=== PATIENT | male | born 1990 | race American Indian/Alaskan Native ===

== ENCOUNTER 2016-12-15 20:59 | Emergency (ER) | payer SELFPAY ==
[2016-12-15 21:00] VITALS: BMI 22.1
[2016-12-15 21:30] VITALS: BP 130/77; PULSE 74; RESP 16; TEMP 97.9; O2SAT 100
[2016-12-15] MEDS ORDERED: cefTRIAXone (Rocephin) 250 mg Inj IM STA (22:53)
--- NOTE | 2016-12-15 23:00 | ED PDOC ---
Arrival/HPI - General Chief Complaint: Male Genitourinary Time Seen by Provider: 12/15/16 22:47 Historian: Patient - History of Present Illness Narrative History of Present Illness (Text): 12/15/16 22:57 26 y/o male, no pmh, stated that he doesn't think he is allergic to penicillin, c/o itching rash on the groin x 1 week. Pt. stated that he had unprotected sex about 2 weeks ago, concerning for the gonorrhea and chlamydia, stated that he wants the prophylatic treatment. Itching groin region, admits sweating alot, no testicular pain, no urinary symptoms, no numbness or tingling, no other medical or psychological complaints. Past Medical History - Provider Review Nursing Documentation Reviewed: Yes - Infectious Disease Hx of Infectious Diseases: None - Cardiac Hx Cardiac Disorders: No Hx Hypertension: No - Pulmonary Hx Respiratory Disorders: No Hx Tuberculosis: No - Neurological Hx Neurological Disorder: No HX Cerebrovascular Accident: No Hx Seizures: No - HEENT Hx HEENT Disorder: No - Renal Hx Renal Disorder: No - Endocrine/Metabolic Hx Endocrine Disorders: No - Hematological/Oncological Hx Blood Disorders: No Hx Cancer: No - Integumentary Hx Dermatological Disorder: No - Musculoskeletal/Rheumatological Hx Musculoskeletal Disorders: No - Gastrointestinal Hx Gastrointestinal Disorders: No - Genitourinary/Gynecological Hx Genitourinary Disorders: No Hx Sexually Transmitted Diseases: No - Psychiatric Hx Psychophysiologic Disorder: Yes Hx Anxiety: Yes Hx Substance Use: No - Anesthesia Hx Anesthesia: No Family/Social History - Physician Review Nursing Documentation Reviewed: Yes Family/Social History: Unknown Family HX Smoking Status: Never Smoked Hx Alcohol Use: No Hx Substance Use: No Allergies/Home Meds Allergies/Adverse Reactions: Allergies Penicillins Allergy (Verified 12/15/16 21:24) RASH Review of Systems - Review of Systems Constitutional: absent: Fatigue, Fevers Eyes: absent: Vision Changes ENT: absent: Hearing Changes Respiratory: absent: Cough Cardiovascular: absent: Chest Pain Gastrointestinal: absent: Abdominal Pain, Nausea, Vomiting Skin: Rash, Pruritis. absent: Skin Lesions, Laceration, Abscess, Ulcer, Cellulitis Neurological: absent: Headache, Dizziness, Focal Weakness, Gait Changes, Speech Changes, Facial Droop, Disequilibrium, Seizure Physical Exam Vital Signs Reviewed: Yes Vital Signs Temp Pulse Resp BP Pulse Ox 12/15/16 21:25 97.9 F 74 16 130/77 100 Temperature: Afebrile Blood Pressure: Normal Pulse: Regular Respiratory Rate: Normal Appearance: Positive for: Well-Appearing, Non-Toxic, Comfortable Pain Distress: None Mental Status: Positive for: Alert and Oriented X 3 - Systems Exam Head: Present: Atraumatic, Normocephalic Pupils: Present: PERRL Extroacular Muscles: Present: EOMI Conjunctiva: Present: Normal Mouth: Present: Moist Mucous Membranes Neck: Present: Normal Range of Motion Respiratory/Chest: Present: Clear to Auscultation, Good Air Exchange. No: Respiratory Distress, Accessory Muscle Use Cardiovascular: Present: Regular Rate and Rhythm, Normal S1, S2. No: Murmurs Abdomen: Present: Normal Bowel Sounds. No: Tenderness, Distention, Peritoneal Signs Genitourinary Male: Present: Normal External Genitalia, Circumcised Penis, Other (visible lichenification on the bilateral inner thigh skin folds region with no vescicular lesion or skin tags, no regional lymphenapathy. ). No: Lesions, Penile Discharge, Testicle Tenderness, Penile Swelling, Masses, Erythema, Hernias, Testicle Swelling Back: Present: Normal Inspection Upper Extremity: Present: Normal Inspection. No: Cyanosis, Edema Lower Extremity: Present: Normal Inspection. No: Edema Neurological: Present: GCS=15, CN II-XII Intact, Speech Normal Skin: Present: Warm, Dry, Normal Color. No: Rashes Psychiatric: Present: Alert, Oriented x 3, Normal Insight, Normal Concentration Medical Decision Making ED Course and Treatment: 12/15/16 23:01 -Pt. stated that he is high risk for the gonorrhea/chlamydia, refused HIV and agreed on the prophylatic treatment. Pt. stated that he will willing to take the rocephin 250mg IM risk for allergic reaction which clinically is less than 10 percent chance, will give benadryl and the prednisone at the same time as well. I will also give epipen to the patient for precaution at home. -rocephine 250mg and azithromycin 1gm po ordered. -Discharge home with epipen, lotrisone cream, keep the skin cool and dry, use condomn in the the future, notify all your sexual partners for STD testing and prophylatically treatment if indicated, follow up with your own pmd within 2 days, return to the ER for any new or worsening signs or symptoms. 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 Disposition/Present on Arrival - Present on Arrival Any Indicators Present on Arrival: No History of DVT/PE: No History of Uncontrolled Diabetes: No Urinary Catheter: No History of Decub. Ulcer: No History Surgical Site Infection Following: None - Disposition Have Diagnosis and Disposition been Completed?: Yes Diagnosis: Potential exposure to STD, Tinea cruris Disposition: HOME/ ROUTINE Disposition Time: 23:05 Patient Plan: Discharge Condition: GOOD Additional Instructions: Discharge home with epipen, lotrisone cream, keep the skin cool and dry, use condomn in the the future, notify all your sexual partners for STD testing and prophylatically treatment if indicated, follow up with your own pmd within 2 days, return to the ER for any new or worsening signs or symptoms. Prescriptions: Epinephrine HCl [Epipen Auto-Injector] 0.3 mg MR ONCE #1 unit Clotrimazole/Betamethasone [Lotrisone] 1 appl EXT BID #60 g Referrals: Pablito Smith MD [Staff Provider] - Follow up with primary Forms: WORK NOTE
== END 2016-12-15 23:24 | disposition home or self-care (01) ==
LOC: ED 20:59
DX: B35.6 Tinea cruris (principal); Z20.2 Contact with and (suspected) exposure to infections with a predominantly sexual mode of transmission; Z88.0 Allergy status to penicillin
CPT/HCPCS: 87491; 87591; 96372; 99283; J0696

== ENCOUNTER 2016-12-16 01:08 | Emergency (ER) | payer SELFPAY ==
[2016-12-16 01:09] VITALS: BMI 22.1
[2016-12-16 01:45] VITALS: RESP 18
--- NOTE | 2016-12-16 03:11 | ED PDOC ---
Arrival/HPI <Omar Bocanegra - Last Filed: 12/16/16 04:21> - General Historian: Patient - History of Present Illness Time/Duration: Prior to Arrival <Rick Mccormick - Last Filed: 12/16/16 06:56> - General Chief Complaint: Dizziness/Lightheaded Time Seen by Provider: 12/16/16 02:27 - History of Present Illness Narrative History of Present Illness (Text): 12/16/16 03:07 26 y/o male with no reported history presenting with complaints of dizziness. Patient was seen here today requesting evaluation for possible STD infection. He was given Rocephin IM as well as Prednisone and benadryl due to Penicillin allergy and risk of possible cross reaction. The patient states he left here and shortly afterward started experiencing dizziness. Patient is also expressing feelings of anxiety which he states may be exacerbating his dizziness. Patient denies chest pain, shortness of breath, headache, seizure or syncope. (Rick Mccormick) Past Medical History - Provider Review Nursing Documentation Reviewed: Yes - Infectious Disease Hx of Infectious Diseases: None - Cardiac Hx Cardiac Disorders: No Hx Hypertension: No - Pulmonary Hx Respiratory Disorders: No Hx Tuberculosis: No - Neurological Hx Neurological Disorder: No HX Cerebrovascular Accident: No Hx Seizures: No - HEENT Hx HEENT Disorder: No - Renal Hx Renal Disorder: No - Endocrine/Metabolic Hx Endocrine Disorders: No - Hematological/Oncological Hx Blood Disorders: No Hx Cancer: No - Integumentary Hx Dermatological Disorder: No - Musculoskeletal/Rheumatological Hx Musculoskeletal Disorders: No - Gastrointestinal Hx Gastrointestinal Disorders: No - Genitourinary/Gynecological Hx Genitourinary Disorders: No Hx Sexually Transmitted Diseases: No - Psychiatric Hx Psychophysiologic Disorder: Yes Hx Anxiety: Yes Hx Substance Use: No - Anesthesia Hx Anesthesia: No <Rick Mccormick - Last Filed: 12/16/16 06:56> Family/Social History Family/Social History: Unknown Family HX Smoking Status: Never Smoked Hx Alcohol Use: No Hx Substance Use: No <Rick Mccormick - Last Filed: 12/16/16 06:56> Allergies/Home Meds <Omar Bocanegra - Last Filed: 12/16/16 04:21> <Rick Mccormick - Last Filed: 12/16/16 06:56> Allergies/Adverse Reactions: Allergies Penicillins Allergy (Verified 04/05/17 01:44) RASH Review of Systems - Physician Review All systems were reviewed & negative as marked: Yes - Review of Systems Constitutional: absent: Fatigue, Fevers Eyes: absent: Vision Changes, Photophobia Neurological: Dizziness. absent: Headache, Focal Weakness, Facial Droop <Rick Mccormick - Last Filed: 12/16/16 06:56> Physical Exam Vital Signs Reviewed: Yes Temperature: Afebrile Blood Pressure: Normal Pulse: Regular Respiratory Rate: Normal Appearance: Positive for: Well-Appearing Pain Distress: None Mental Status: Positive for: Alert and Oriented X 3 - Systems Exam Head: Present: Atraumatic, Normocephalic Pupils: Present: PERRL Extroacular Muscles: Present: EOMI Conjunctiva: Present: Normal Mouth: Present: Moist Mucous Membranes Neck: Present: Normal Range of Motion Respiratory/Chest: Present: Clear to Auscultation. No: Respiratory Distress Cardiovascular: Present: Regular Rate and Rhythm, Normal S1, S2 Abdomen: Present: Normal Bowel Sounds. No: Tenderness Upper Extremity: Present: Normal Inspection. No: Cyanosis, Edema Lower Extremity: Present: Normal Inspection, NORMAL PULSES. No: Edema Neurological: Present: GCS=15, CN II-XII Intact, Speech Normal Skin: Present: Warm. No: Dry Psychiatric: Present: Alert, Oriented x 3, Normal Insight, Normal Concentration <Rick Mccormick - Last Filed: 12/16/16 06:56> Vital Signs Temp Pulse Resp BP Pulse Ox 12/16/16 05:21 98.1 F 71 18 100/56 L 98 12/16/16 01:44 98.0 F 89 18 142/60 97 Medical Decision Making <Omar Bocanegra - Last Filed: 12/16/16 04:21> <Rick Mccormick - Last Filed: 12/16/16 06:56> ED Course and Treatment: Impression: Pt was seen and evaluated with medical office specialist. Pt presented complaining of dizziness. Pt was seen in the Emergency department earlier today for possible STI. Pt was given Rocephin IM, Prednisone, and Benadryl. but began feeling dizzy ahortly after discharge. Aware and agree with HPI, clinical findings, plan , and management. Plan: -- Reassess and disposition Progress Notes: (Omar Bocanegra) 12/16/16 03:12 26 y/o male with no significant PMH presenting with complaints of dizziness. There are no other associated symptoms or focal deficits. Patient was seen here hours ago and given multiple medications. This may be a drug reaction vs labrythitis vs BPPV. 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 / has examined the patient and agrees with the treatment plan. <Omar Bocanegra - Last Filed: 12/16/16 04:21> Disposition/Present on Arrival <Omar Bocanegra - Last Filed: 12/16/16 04:21> - Present on Arrival Any Indicators Present on Arrival: No History of DVT/PE: No History of Uncontrolled Diabetes: No Urinary Catheter: No History of Decub. Ulcer: No History Surgical Site Infection Following: None - Disposition Have Diagnosis and Disposition been Completed?: Yes Disposition Time: 05:00 Patient Plan: Discharge <Rick Mccormick - Last Filed: 12/16/16 06:56> - Disposition Diagnosis: Acute labyrinthitis Disposition: HOME/ ROUTINE Condition: STABLE Discharge Instructions (ExitCare): Lightheadedness (ED), Dizziness (ED) Additional Instructions: Continue to take antibiotics prescribed at last visit. You are prescribed a medication for dizziness. Take this medication as needed for your symptoms. Return to the ED if your symptoms worsen or change. Prescriptions: Meclizine [Antivert] 25 mg PO Q6 PRN #14 tab PRN Reason: Dizziness Forms: WORK NOTE
[2016-12-16 05:22] VITALS: BP 100/56; PULSE 71; TEMP 98.1; O2SAT 98
== END 2016-12-16 05:22 | disposition home or self-care (01) ==
LOC: ED 01:08
DX: H83.09 Labyrinthitis, unspecified ear (principal)

== ENCOUNTER 2017-03-01 18:58 | Emergency (ER) | payer SELFPAY ==
[2017-03-01 18:59] VITALS: BMI 22.1
[2017-03-01 19:19] VITALS: BP 118/74; PULSE 86; RESP 18; TEMP 98.2; O2SAT 99
== END 2017-03-01 21:37 | disposition left against medical advice (07) ==
LOC: ED 18:58
DX: Z02.89 Encounter for other administrative examinations (principal); R51 Headache

== ENCOUNTER 2017-03-17 20:41 | Emergency (ER) | payer SELFPAY ==
[2017-03-17 20:41] VITALS: BMI 22.1
[2017-03-17 21:02] VITALS: RESP 18; TEMP 98.7; O2SAT 100
--- NOTE | 2017-03-17 21:22 | ED PDOC ---
Arrival/HPI - General Chief Complaint: Headache Time Seen by Provider: 03/17/17 21:08 Historian: Patient - History of Present Illness Narrative History of Present Illness (Text): 03/17/17 21:21 This 27 yo male wikorin SMITH, presents to this ED c/o exacerbation of SMITH x 2 weeks. Patient denies recent trauma, recent travel, sick contact, weakness, paresthesias, diplopia, n/v, dizziness, sob, cp, abdominal pain, or abnormal gait. Patient appears in no acute distress. Patient is listening to music, with loud volume. Time/Duration: Other (2 week) Quality: Aching Context: Home Past Medical History - Provider Review Nursing Documentation Reviewed: Yes - Infectious Disease Hx of Infectious Diseases: None - Cardiac Hx Cardiac Disorders: No Hx Hypertension: No - Pulmonary Hx Respiratory Disorders: No Hx Tuberculosis: No - Neurological Hx Neurological Disorder: No HX Cerebrovascular Accident: No Hx Seizures: No - HEENT Hx HEENT Disorder: No - Renal Hx Renal Disorder: No - Endocrine/Metabolic Hx Endocrine Disorders: No - Hematological/Oncological Hx Blood Disorders: No Hx Cancer: No - Integumentary Hx Dermatological Disorder: No - Musculoskeletal/Rheumatological Hx Musculoskeletal Disorders: No - Gastrointestinal Hx Gastrointestinal Disorders: No - Genitourinary/Gynecological Hx Genitourinary Disorders: No Hx Sexually Transmitted Diseases: No - Psychiatric Hx Psychophysiologic Disorder: Yes Hx Anxiety: Yes Hx Substance Use: No - Anesthesia Hx Anesthesia: No Family/Social History - Physician Review Nursing Documentation Reviewed: Yes Family/Social History: No Known Family HX Smoking Status: Never Smoked Hx Alcohol Use: No Hx Substance Use: No Allergies/Home Meds Allergies/Adverse Reactions: Allergies Penicillins Allergy (Verified 12/16/16 01:44) RASH Review of Systems - Review of Systems Constitutional: Normal. absent: Fatigue, Weight Change, Fevers Eyes: Normal ENT: Normal Respiratory: Normal Cardiovascular: Normal Gastrointestinal: Normal Genitourinary Male: Normal Musculoskeletal: Normal Skin: Normal Neurological: Headache. absent: Dizziness, Focal Weakness, Gait Changes, Speech Changes, Facial Droop, Disequilibrium, Seizure Endocrine: Normal Hemo/Lymphatic: Normal Psychiatric: Normal Physical Exam Vital Signs Temp Pulse Resp BP Pulse Ox 03/17/17 20:56 98.7 F 83 18 104/69 100 Temperature: Afebrile Blood Pressure: Normal Pulse: Regular Respiratory Rate: Normal Appearance: Positive for: Well-Appearing, Non-Toxic, Comfortable Pain Distress: None Mental Status: Positive for: Alert and Oriented X 3 - Systems Exam Head: Present: Atraumatic, Normocephalic Pupils: Present: PERRL Extroacular Muscles: Present: EOMI Conjunctiva: Present: Normal Mouth: Present: Moist Mucous Membranes Neck: Present: Normal Range of Motion Respiratory/Chest: Present: Clear to Auscultation, Good Air Exchange. No: Respiratory Distress, Accessory Muscle Use Cardiovascular: Present: Regular Rate and Rhythm, Normal S1, S2. No: Murmurs Abdomen: Present: Normal Bowel Sounds. No: Tenderness, Distention, Peritoneal Signs Back: Present: Normal Inspection Upper Extremity: Present: Normal Inspection. No: Cyanosis, Edema Lower Extremity: Present: Normal Inspection. No: Edema Neurological: Present: GCS=15, CN II-XII Intact, Speech Normal, Motor Func Grossly Intact, Normal Sensory Function, Normal Cerebellar Funct, Gait Normal, Memory Normal, Other (No neuro focal deficits) Skin: Present: Warm, Dry, Normal Color. No: Rashes Psychiatric: Present: Alert, Oriented x 3, Normal Insight, Normal Concentration Medical Decision Making ED Course and Treatment: 03/17/17 21:28 Re-evaluation. Patient feels better. Discussed results and plan with patient who expresses understanding. All questions answered and there is agreement with the plan to discharge home with instructions. Patient stable for discharge. Return if symptoms persist or worsen. Patient feels better. He is requesting a work note. Re-evaluation Time: 21:29 Reassessment Condition: Re-examined, Improved Disposition/Present on Arrival - Present on Arrival Any Indicators Present on Arrival: No History of DVT/PE: No History of Uncontrolled Diabetes: No Urinary Catheter: No History of Decub. Ulcer: No History Surgical Site Infection Following: None - Disposition Have Diagnosis and Disposition been Completed?: Yes Diagnosis: Headache Disposition: HOME/ ROUTINE Disposition Time: 21:29 Patient Plan: Discharge Condition: GOOD Discharge Instructions (ExitCare): General Headache (ED) Additional Instructions: Call private doctor for follow up visit in 1-2 days. Take medication as instructed. Return to emergency if symptoms worsen. Call neurologist for revaluation Prescriptions: Acetaminophen/Butalbital/Caf [Fioricet] 1 tab PO Q4H PRN #12 tab PRN Reason: Headache Referrals: PCP,NO [Primary Care Provider] - Follow up with primary [facility] [Outside] - Follow up with primary [facility] [Outside] - Follow up with primary Keven Silva MD [Staff Provider] - Follow up with primary Forms: WORK NOTE
[2017-03-17 22:13] VITALS: BP 111/73; PULSE 80
== END 2017-03-17 22:12 | disposition home or self-care (01) ==
LOC: ED 20:41
DX: R51 Headache (principal)
CPT/HCPCS: 96372; 99285; J1885

== ENCOUNTER 2017-04-25 20:04 | Emergency (ER) | payer SELFPAY ==
[2017-04-25 20:05] VITALS: BMI 22.1
[2017-04-25 20:25] VITALS: RESP 16; TEMP 98.6; O2SAT 100
[2017-04-25] MEDS ORDERED: TraMADol/Apap 37.5/325 mg Tab PO STA (20:47)
--- NOTE | 2017-04-25 21:18 | ED PDOC ---
Arrival/HPI - General Chief Complaint: Headache Time Seen by Provider: 04/25/17 20:25 Historian: Patient - History of Present Illness Narrative History of Present Illness (Text): 04/25/17 21:13 A 27 year old male with no known past medical history, presents to the Emergency department complaining of headache discomfort for the past few weeks. The patient also notes that he has observed a small bump on the shaft of his penis. The patient denies trauma or injury, neck pain, back pain, nausea, vomiting, penile discharge, rash, fever, chills, chest pain, shortness of breath , cough, abdominal pain, dizziness or any other complaint. Time/Duration: Other (Past weeks) Symptom Onset: Sudden Symptom Course: Unchanged Activities at Onset: Rest, Light Context: Home Past Medical History - Provider Review Nursing Documentation Reviewed: Yes - Infectious Disease Hx of Infectious Diseases: None - Cardiac Hx Cardiac Disorders: No Hx Hypertension: No - Pulmonary Hx Respiratory Disorders: No Hx Tuberculosis: No - Neurological Hx Neurological Disorder: No HX Cerebrovascular Accident: No Hx Seizures: No - HEENT Hx HEENT Disorder: No - Renal Hx Renal Disorder: No - Endocrine/Metabolic Hx Endocrine Disorders: No - Hematological/Oncological Hx Blood Disorders: No Hx Cancer: No - Integumentary Hx Dermatological Disorder: No - Musculoskeletal/Rheumatological Hx Musculoskeletal Disorders: No - Gastrointestinal Hx Gastrointestinal Disorders: No - Genitourinary/Gynecological Hx Genitourinary Disorders: No Hx Sexually Transmitted Diseases: No - Psychiatric Hx Psychophysiologic Disorder: Yes Hx Anxiety: Yes Hx Substance Use: No - Anesthesia Hx Anesthesia: No Family/Social History - Physician Review Nursing Documentation Reviewed: Yes Family/Social History: No Known Family HX Smoking Status: Never Smoked Hx Alcohol Use: No Hx Substance Use: No Allergies/Home Meds Allergies/Adverse Reactions: Allergies Penicillins Allergy (Verified 12/16/16 01:44) RASH Review of Systems - Physician Review All systems were reviewed & negative as marked: Yes - Review of Systems Constitutional: absent: Fevers, Night Sweats Respiratory: absent: SOB, Cough Cardiovascular: absent: Chest Pain Gastrointestinal: absent: Abdominal Pain, Diarrhea, Nausea, Vomiting Musculoskeletal: absent: Back Pain, Neck Pain Skin: absent: Rash Neurological: Headache. absent: Dizziness Physical Exam Vital Signs Reviewed: Yes Vital Signs Temp Pulse Resp BP Pulse Ox 04/25/17 20:24 98.6 F 102 H 16 134/84 100 Temperature: Afebrile Blood Pressure: Normal Pulse: Tachycardic Respiratory Rate: Normal Appearance: Positive for: Well-Appearing, Non-Toxic, Comfortable Pain Distress: None Mental Status: Positive for: Alert and Oriented X 3 - Systems Exam Head: Present: Atraumatic, Normocephalic Pupils: Present: PERRL Extroacular Muscles: Present: EOMI Conjunctiva: Present: Normal Mouth: Present: Moist Mucous Membranes Neck: Present: Normal Range of Motion Respiratory/Chest: Present: Clear to Auscultation, Good Air Exchange. No: Respiratory Distress, Accessory Muscle Use Cardiovascular: Present: Regular Rate and Rhythm, Normal S1, S2. No: Murmurs Abdomen: Present: Normal Bowel Sounds. No: Tenderness, Distention, Peritoneal Signs Genitourinary Male: Present: Other (a small 1-2 mm slightly raised keratotic area to the penile shaft). No: Penile Discharge, Erythema, Testicle Swelling Back: Present: Normal Inspection Upper Extremity: Present: Normal Inspection. No: Cyanosis, Edema Lower Extremity: Present: Normal Inspection. No: Edema Neurological: Present: GCS=15, CN II-XII Intact, Speech Normal Skin: Present: Warm, Dry, Normal Color. No: Rashes Psychiatric: Present: Alert, Oriented x 3, Normal Insight, Normal Concentration Medical Decision Making ED Course and Treatment: 04/25/17 21:20 Impression: A 27 year old male with headache discomfort and a small 1-2 mm slightly raised keratotic area to the penile shaft. Plan: -- Head CT -- Acetaminophen -- Reassess and disposition Progress Notes: 04/25/17 21:49 Reviewed radiology, CT Head shows: No CT evidence of acute intracranial abnormality. 04/25/17 23:14 On reevaluation the patient feels better and is in no acute distress. I have discussed the results and plan with the patient, who expresses understanding. Patient given the opportunity to ask question, all questions were answered and there is agreement with the plan to discharge the patient home. Patient is stable for discharge. Patient was instructed to follow up with physician/clinic in 1-2 days or return if symptoms persist/worsen or new concerning symptoms arise. - RAD Interpretation Narrative RAD Interpretations (Text): CT Head shows: Brain: No hemorrhage. No significant white matter disease. No edema. Ventricles: No hydrocephalus. Bones: Skull is intact. Sinuses: No acute sinusitis. Mastoid air cells: No mastoid effusion. IMPRESSION: No CT evidence of acute intracranial abnormality. Radiology Orders: 04/25/17 20:44 HEAD W/O CONTRAST [CT] Stat Special Diet Cook: Radiologist - Medication Orders Current Medication Orders: Discontinued Medications Tramadol/Acetaminophen (Ultracet 37.5/325 Mg) 1 tab PO ONCE STA Stop: 04/25/17 20:48 Last Admin: 04/25/17 20:54 Dose: 1 tab - Scribe Statement The provider has reviewed the documentation as recorded by the Scribe Lianet Grimes Provider Scribe Attestation: All medical record entries made by the Scribe were at my direction and personally dictated by me. I have reviewed the chart and agree that the record accurately reflects my personal performance of the history, physical exam, medical decision making, and the department course for this patient. I have also personally directed, reviewed, and agree with the discharge instructions and disposition. Disposition/Present on Arrival - Present on Arrival Any Indicators Present on Arrival: No History of DVT/PE: No History of Uncontrolled Diabetes: No Urinary Catheter: No History of Decub. Ulcer: No History Surgical Site Infection Following: None - Disposition Have Diagnosis and Disposition been Completed?: Yes Diagnosis: Headache Disposition: HOME/ ROUTINE Disposition Time: 23:14 Patient Plan: Discharge Patient Problems: Current Active Problems Problem Status Onset Headache Acute Condition: STABLE Discharge Instructions (ExitCare): Acute Headache (ED) Additional Instructions: Take meds as prescribed/follow up with your doctor this week Prescriptions: Acetaminophen/Butalbital/Caf [Fioricet] 1 tab PO Q6 PRN #16 tab PRN Reason: Headache Forms: [employer] (Greek)
--- NOTE | 2017-04-25 21:44 | CT ---
EXAM: CT Head Without Intravenous Contrast CLINICAL HISTORY: 27 years old, male; Pain; Headache; Headache not specified TECHNIQUE: Axial computed tomography images of the head/brain without intravenous contrast. All CT scans at this facility use one or more dose reduction techniques, viz.: automated exposure control; ma/kV adjustment per patient size (including targeted exams where dose is matched to indication; i.e. head); or iterative reconstruction technique. COMPARISON: CT - HEAD W/O CONTRAST 06/17/2016 2:54:45 PM FINDINGS: Brain: No hemorrhage. No significant white matter disease. No edema. Ventricles: No hydrocephalus. Bones: Skull is intact. Sinuses: No acute sinusitis. Mastoid air cells: No mastoid effusion. IMPRESSION: No CT evidence of acute intracranial abnormality.
[2017-04-25 23:30] VITALS: BP 135/82; PULSE 86
== END 2017-04-25 23:31 | disposition home or self-care (01) ==
LOC: ED 20:04
DX: R51 Headache (principal)